=== PATIENT | female | born 1985 | race Caucasian/White ===

== ENCOUNTER 2025-02-10 07:00 | Day surgery (SDC) | payer OTHER, SELFPAY ==
[2025-01-28 13:33] VITALS: BMI 23.6
[2025-02-10 07:14] VITALS: BMI 23.3
[2025-02-10 07:15] VITALS: BP 108/68; PULSE 78; RESP 16; TEMP 36.4; O2SAT 100
--- NOTE | 2025-02-10 07:47 | WPDANESEPPF ---
Anes - Initial Pre Proc Eval Procedure: Operation Date: 02/10/25 09:00 Proposed Procedures p Diagnostic Colonoscopy - Luis Calero MD Date/Time: 02/10/25 07:47 Surgeon: Luis Calero MD Pre Op Diagnosis: Hemorrhage-Anus and Rectum, HX Tubular Adenoma Patient Data Age: 39 Gender: F Height: 1.63 m Weight: 61.8 kg Last Vital Signs Temp 97.5 F L 02/10/25 07:15 Pulse 78 02/10/25 07:15 Resp 16 02/10/25 07:15 BP 108/68 02/10/25 07:15 Pulse Ox 100 02/10/25 07:15 O2 Del Method Room Air 02/10/25 07:15 Allergies Allergy/AdvReac Type Severity Reaction Status Date / Time No Known Allergies Allergy Verified 02/10/25 07:05 Home Medications ?Medication ?Instructions ?Recorded ?Confirmed ?Type buspirone 10 mg capsule 10 mg PO TID 01/28/25 02/10/25 History fluoxetine 20 mg capsule 20 mg PO DAILY 01/28/25 02/10/25 History l.norgest-e.estradiol triphase 1 tablet PO DAILY 01/28/25 02/10/25 History 50-30(6)/75-40(5)/125-30(10)(21) tablet sennosides 8.6 mg tablet (Laxative 8.6 mg PO DAILY PRN constipation 01/28/25 02/10/25 History (sennosides)) Patient hx anesthesia problems: none Family hx anesthesia problems: none Results Review: All pre-operative results and documents have been reviewed as part of the pre-operative evaluation. [facility] Social History Social History Alcohol intake: former Living arrangements: incarcerated Spiritual care concerns: No Anes - Eval Final PreProcedure Day of Procedure 02/10/25 07:47 Heart: regular rate and rhythm Lungs: clear to auscultation Airway: Mallampati scale class 1 Neurological: alert and oriented Last oral intake: >/= 8 hours ASA classification: II Anesthetic plan: proceed Anesthesia type and monitoring: monitored anesthesia care Results Review: All pre-operative results and documents have been reviewed as part of the pre-operative evaluation. Informed Consent: The patient's anesthetic plan and its attendant risks and benefits were discussed with the patient/family/POA. Questions were solicited and answers provided to the satisfaction of the patient/family/POA.
[2025-02-10] MEDS: LACTATED RINGERS 1,000 ML 150 ML IV CONT (08:00)
--- NOTE | 2025-02-10 08:49 | PM.IMHP ---
H&P: HPI History of Present Illness Date/Time: 02/10/25 08:49 Chief Complaint: History of colon polyp Narrative: The patient has a history of colonic polyps, the last colonoscopy was 2015. Review of Systems Review of Systems: All systems reviewed & are unremarkable except as noted in HPI and below [facility] Social History Social History Alcohol intake: former Living arrangements: incarcerated Spiritual care concerns: No Meds Home Medications and Allergies Home Medications ?Medication ?Instructions ?Recorded ?Confirmed ?Type buspirone 10 mg capsule 10 mg PO TID 01/28/25 02/10/25 History fluoxetine 20 mg capsule 20 mg PO DAILY 01/28/25 02/10/25 History l.norgest-e.estradiol triphase 1 tablet PO DAILY 01/28/25 02/10/25 History 50-30(6)/75-40(5)/125-30(10)(21) tablet sennosides 8.6 mg tablet (Laxative 8.6 mg PO DAILY PRN constipation 01/28/25 02/10/25 History (sennosides)) Allergies Allergy/AdvReac Type Severity Reaction Status Date / Time No Known Allergies Allergy Verified 02/10/25 07:05 Vital Signs Vital Signs - 24 hr 02/10/25 07:15 Temperature 97.5 F L Pulse Rate 78 Respiratory Rate 16 Blood Pressure 108/68 Pulse Oximetry 100 Oxygen Delivery Room Air Exam Const: General: cooperative and healthy appearing Resp: Effort & Inspection: normal respiratory effort and able to speak in complete sentences Auscultation: clear to auscultation bilaterally Cardio: Rate: regular rate Rhythm: regular rhythm GI: Inspection: normal to inspection GI Palp: No No hepatosplenomegaly present Auscultation: normal bowel sounds Rectal Exam: deferred Skin: General skin exam: normal color Psych: Appearance: grossly normal Mental Status: mental status grossly normal Assessment and Plan Assessment and plan (1) History of colonic polyps: Code(s): Z86.0100 - Personal history of colon polyps, unspecified Status: Acute Assessment and Plan: The patient is deemed a good candidate for the procedure. Consent signed. Will proceed.
--- NOTE | 2025-02-10 09:08 | WPDANESPN ---
Anes - Prog Note Post-Op Date/Time: 02/10/25 09:08 Vital Signs: Last Vital Signs Temp 97.5 F L 02/10/25 07:15 Pulse 78 02/10/25 07:15 Resp 16 02/10/25 07:15 BP 108/68 02/10/25 07:15 Pulse Ox 100 02/10/25 07:15 O2 Del Method Room Air 02/10/25 07:15 Pain Score (VAS): no Patient Feedback: Patient satisfied with anesthetic care.
[2025-02-10] MEDS: SIMETHICONE ORAL SUSPENSION 20 MG/0.3 ML 30 ML BOTTLE 0.6 ML IRRIGATION (09:12)
[2025-02-10 09:20] VITALS: BP 94/50; PULSE 75; RESP 16; O2SAT 100
[2025-02-10 09:30] VITALS: BP 106/76; PULSE 74; RESP 16; O2SAT 99
[2025-02-10 09:40] VITALS: BP 104/66; PULSE 70; RESP 16; O2SAT 100
== END 2025-02-10 09:45 | disposition home or self-care (01) ==
PROVIDERS: Visit Provider Internal Medicine Gastroenterology
PROC: 0DJD8ZZ Inspection of Lower Intestinal Tract, Via Natural or Artificial Opening Endoscopic (ICD-10-PCS; CPT 45378; principal; 2025-02-10 09:00)
DX: Z12.11 Encounter for screening for malignant neoplasm of colon (principal); Z86.0100 Personal history of colon polyps, unspecified
CPT/HCPCS: 45378